=== PATIENT | female | born 1955 | race Caucasian/White ===

== ENCOUNTER 2020-04-25 14:45 | Emergency (ER) | payer MEDICARE, MEDICAID, SELFPAY ==
--- NOTE | ~2020-04-25 | XR_ITS ---
EXAMINATION: XR humerus RT DATE: 04/25/2020 15:15 INDICATION: Diffuse right humeral pain post fall TECHNIQUE: Internal and externally rotated views of the right humerus were obtained. COMPARISON: None. FINDINGS: Alignment is normal. No fracture. 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 Gleno humeral and elbow joint spaces appear normal. Small enthesophytes at the medial and lateral humeral e picondyles. Soft tissues are unremarkable. IMPRESSION: 1. No acute osseous abnormality. Reviewed, dictated and finalized at location A. [facility]
[2020-04-25 15:04] VITALS: BP 153/77; PULSE 93; RESP 16; TEMP 37.2; O2SAT 99
--- NOTE | 2020-04-25 15:56 | ED.UPPEXIN ---
HPI - Extremity Injury (Upper) General Chief Complaint: Extremity Injury, Upper Stated Complaint: Right shoulder and arm pain Source: patient Mode of arrival: ambulatory Limitations: no limitations History of Present Illness HPI narrative: Patient is a 65-year-old female who presents complaining of right shoulder and upper arm pain. Patient reports falling this afternoon at approximately 1230. She reports falling onto grass, unsure how she fell, denies loss of consciousness. Denies other injuries. She denies taking any [id number] medications prior to arrival. complaint: injury to: right and shoulder Related Data Home Medications Medication Instructions Recorded Confirmed alprazolam 04/25/20 atorvastatin 04/25/20 citalopram mg 04/25/20 famotidine 04/25/20 fenofibrate nanocrystallized mg PO 04/25/20 fluticasone propionate INTRANASAL 04/25/20 hydrocodone-acetaminophen 04/25/20 levothyroxine 04/25/20 levothyroxine 04/25/20 metoprolol tartrate 04/25/20 Allergies Allergy/AdvReac Type Severity Reaction Status Date / Time Penicillins Allergy Unknown SWELLING Verified 08/15/16 13:40 OF FACE AND ARMS Mushroom Allergy Unknown Hives / Uncoded 08/15/16 13:40 Red Face Review of Systems Review of Systems: Narrative: CONSTITUTIONAL: Denies fever, chills, or sweats. EYES: Denies visual changes, redness, or discharge. ENT: Denies rhinorrhea, congestion, sore throat, or otalgia. CARDIOVASCULAR: Denies chest pain, palpitations, or edema. RESPIRATORY: Denies cough or dyspnea. GASTROINTESTINAL: Denies abdominal pain, nausea, vomiting, or diarrhea. GENITOURINARY: Denies dysuria or hematuria. SKIN: Denies rash or itching. MUSCULOSKELETAL: Reports right shoulder pain NEUROLOGIC: Denies headache, numbness, dizziness, or weakness. PSYCHIATRIC: Denies anxiety or depression. [facility] Past Medical History Medical History Anxiety HTN (hypertension) Hypercholesterolemia Hypothyroidism Surgical History Surgical History H/O tubal ligation History of appendectomy History of hysterectomy Hx of cholecystectomy Family History Family History Other No significant family history Social History Social History (Updated 04/25/20 @ 15:59 by JUAN Copeland) Smoking status: Current every day smoker Tobacco type: cigarettes Alcohol intake: never Substance use: never Exam Narrative: Exam Narrative: GENERAL: Well-appearing, well-nourished, and in no acute distress. HEAD: Normocephalic, atraumatic. EYES: No redness or drainage. ENT: Mucous membranes pink and moist. CHEST: No respiratory distress. MUSCULOSKELETAL: No bony tenderness. EXTREMITIES: Right arm: Normal range of motion. No edema or ecchymosis. SKIN: Warm, dry, no rash. NEURO: No focal deficits. Alert and oriented x3. Gait steady. PSYCH: Normal affect. No signs of depression or anxiety. Course Vital Signs Vital signs: Vital Signs Temperature 37.2 C 04/25/20 15:04 Pulse Rate 93 04/25/20 15:04 Respiratory Rate 16 04/25/20 15:04 Blood Pressure 153/77 H 04/25/20 15:04 Pulse Oximetry 99 04/25/20 15:04 Temperature 37.2 C 04/25/20 15:04 Pulse Rate 93 04/25/20 15:04 Respiratory Rate 16 04/25/20 15:04 Blood Pressure 153/77 H 04/25/20 15:04 Pulse Oximetry 99 04/25/20 15:04 Reviewed. Patient has been instructed to follow-up with her PCP regarding her blood pressure. MDM - Extremity Injury (Upper) MDM Narrative Medical decision making narrative: X-ray of right shoulder and humerus shows no fracture, dislocation or abnormality. Discussed with patient most likely cause of shoulder pain is musculoskeletal. Discussed taking muscle relaxant as well as ibuprofen. Patient agrees with plan of care. Patient to follow-up with
--- NOTE | 2020-04-25 16:04 | PC.NURSE ---
aware of awaiting dc instructions.
--- NOTE | 2020-04-25 16:14 | PC.NURSE ---
pier worker aware of need for rx to be escribed. pt aware to have pharmacy call with any problems.
== END 2020-04-25 16:06 | disposition home or self-care (01) ==
PROVIDERS: Emergency Provider Nurse Practitioner; PCP Internal Medicine
DX: S46.911A Strain of unspecified muscle, fascia and tendon at shoulder and upper arm level, right arm, initial encounter (principal); W19.XXXA Unspecified fall, initial encounter; I10 Essential (primary) hypertension; E78.00 Pure hypercholesterolemia, unspecified; E03.9 Hypothyroidism, unspecified; F41.9 Anxiety disorder, unspecified
CPT/HCPCS: 73060; 99213; G0463

== ENCOUNTER 2025-05-16 09:45 | Emergency (ER) | payer MEDICARE, MEDICAID, SELFPAY ==
--- NOTE | ~2025-05-16 | XR_ITS ---
EXAMINATION: XR chest 2V DATE: 05/16/2025 10:22 INDICATION: Cough and chest congestion TECHNIQUE: PA and lateral views of the chest were obtained. COMPARISON: None FINDINGS: Mild opacities with bronchial wall thickening in the posterior lung bases on the lateral projection, unclear whether left or right-sided. No pleural effusion or pneumothorax. The cardiomediastinal silhouette is normal. Cholecystectomy clips in the right upper quadrant. Mild thoracic spondylosis. IMPRESSION: 1. Mild opacities with bronchial wall thickening projecting over the posterior sulci on the lateral projection, unclear whether left-sided, right-sided or both, which could represent mild pulmonary edema, aspiration, pneumonia or atelectasis with mild bronchiectasis. Reviewed, dictated and finalized at location A. [facility] IMPRESSION: 1. Mild opacities with bronchial wall thickening projecting over the posterior sulci on the lateral projection, unclear whether left-sided, right-sided or bot h, which could represent mild pulmonary edema, aspiration, pneumonia or atelect asis with mild bronchiectasis.
[2025-05-16 09:57] VITALS: BP 154/76; PULSE 81; RESP 18; TEMP 36.4; O2SAT 97
--- NOTE | 2025-05-16 10:08 | ECG_ITS ---
Test Date: 2025-05-16 10:17:45 Measurements Intervals [place] Rate: 82 P: 58 SD: 165 QRS: 60 QRSD: 76 T: 79 QT: 374 QTc: 437 Interpretive Statements SINUS RHYTHM MINIMAL Q WAVES- INFERIOR LEADS BASELINE ARTIFACT- I, III ,AVL, AVF BORDERLINE ECG No previous ECG available for comparison Electronically Signed On 05-16-2025 10:41:20 [employer] by Esdras Sterling D.O.
--- NOTE | 2025-05-16 10:08 | ED.URI ---
HPI - URI/Sore Throat General Chief Complaint: Upper Respiratory Infection Stated Complaint: Sinus/Congestion Time Seen by Provider: 05/16/25 09:48 Source: patient Mode of arrival: ambulatory Limitations: no limitations History of Present Illness HPI Narrative: Gunjan is a 70-year-old female patient presenting to the clinic today with complaints of sinus pressure, congestion, cough, and chest congestion times 2 weeks and right shoulder pain/neck/chest pain for the past 3 weeks. Has been taking ibuprofen 600 mg for her shoulder without much relief. Is asking if she can increase that to 800 mg. No known injury to her shoulder. States she is having a burning sensation in the front and in the back of the musculature. Denies any shortness of breath. She is a current cigarette smoker. Smokes less than pack of tobacco per day. Related Data Home Medications ?Medication ?Instructions ?Recorded ?Confirmed ?Last Taken ?Type alprazolam 0.5 mg tablet 04/25/20 Unknown History atorvastatin 80 mg tablet 04/25/20 Unknown History citalopram 10 mg tablet mg 04/25/20 Unknown History famotidine 40 mg tablet 04/25/20 Unknown History fenofibrate nanocrystallized 48 mg mg PO 04/25/20 Unknown History tablet fluticasone propionate 50 intranasal 04/25/20 Unknown History mcg/actuation nasal spray,suspension hydrocodone 7.5 mg-acetaminophen 04/25/20 Unknown History 325 mg tablet levothyroxine 125 mcg tablet 04/25/20 Unknown History metoprolol tartrate 50 mg tablet 04/25/20 Unknown History amlodipine 10 mg tablet mg 05/16/25 Unknown History Allergies Allergy/AdvReac Type Severity Reaction Status Date / Time Penicillins Allergy Unknown SWELLING Verified 05/16/25 09:56 OF FACE AND ARMS Mushroom Allergy Unknown Hives / Uncoded 08/15/16 13:40 Red Face Review of Systems Review of Systems: Pertinent positives per HPI. Patient denies any rash, visual changes, dizziness, shortness of breath, chest pain, palpitations, nausea, vomiting, diarrhea, constipation, abdominal pain, or any urinary issues. [facility] Past Medical History Medical History Anxiety HTN (hypertension) Hypercholesterolemia Hypothyroidism Surgical History Surgical History History of hysterectomy H/O tubal ligation Hx of cholecystectomy History of appendectomy Family History Family History Other No significant family history Social History Social History Smoking status: Current every day smoker Tobacco type: cigarettes Alcohol intake: never Substance use: never Comments At the time of my signature, I reviewed and agree with the nursing past medical, surgical, social, and family history. There is no relevant family history pertinent to the patient complaint. Exam Narrative: General: Well-developed, overweight, in no apparent distress Head: Normocephalic, atraumatic Eyes: Pupils equally round and reactive to light bilaterally, EOM intact, sclera and conjunctive clear, no discharge, lids normal Ears: TMs intact and congested, ear canals clear, no drainage, grossly hearing normal. Nose: Nares patent, yellow nasal discharge, moderate inflammation, frontal sinus tenderness. Mouth: Oral pharynx without lesions or masses, good dentition, MMM. Neck: Supple, trachea midline, no enlargement of anterior or posterior cervical nodes, no thyroid masses or goiter palpable. Cardio: Regular rate and rhythm, s1 and s2 normal, no murmur appreciated. Resp: Crackles over the right mid and lower lung zones and to the left lower lung zone, no wheezing or rubs Musculoskeletal: No deformity, tender to palpation over the right trapezius musculature of the cervical spine into the right anterior and posterior shoulder, grossly normal range of motion, muscle strength strong and equal, peripheral pulse strong, no edema of the upper or lower extremity, no cyanosis, normal gait and station Course Course Level of Care: Express Care Visit Vital Signs Vital signs: Vital Signs Temperature 36.4 C L 05/16/25 09:57 Pulse Rate 81 05/16/25 09:57 Respiratory Rate 18 05/16/25 09:57 Blood Pressure 154/76 H 05/16/25 09:57 Pulse Oximetry 97 05/16/25 09:57 Oxygen Delivery Room Air 05/16/25 09:57 Temperature 36.4 C L 05/16/25 09:57 Pulse Rate 81 05/16/25 09:57 Respiratory Rate 18 05/16/25 09:57 Blood Pressure 154/76 H 1223/25 09:57 Pulse Oximetry 97 05/16/25 09:57 Oxygen Delivery Room Air 05/16/25 09:57 [facility] Narrative Medical decision making narrative: At the time of visit patient is resting comfortably on the exam table. Patient appears to be nontoxic. Complaints of sinus pressure, congestion, cough, and chest congestion times 2 weeks and right shoulder pain/neck/chest pain for the past 3 weeks. Has been taking ibuprofen 600 mg for her shoulder without much relief. Is asking if she can increase that to 800 mg. No known injury to her shoulder. States she is having a burning sensation in the front and in the back of the musculature. Denies any shortness of breath. She is a current cigarette smoker. Smokes less than pack of tobacco per day. On exam patient has bilateral TMs intact and congested, no nasal drainage, moderate anterior turbinate inflammation, frontal sinus tenderness, oral pharynx mildly red with postnasal drip, crackles heard over the right lower and mid lung zone as well as over the left lower lung zone, heart rates regular rate and rhythm, no upper or lower extremity edema, tenderness to palpation over the cervical musculature of the right neck/anterior and posterior shoulder. EKG and chest x-ray was ordered. EKG: EKG shows sinus rhythm with a heart rate of 82 beats per minute without ST elevation, depression, or T-wave inversion. Diagnostics: Chest x-ray shows mild opacities with bronchial wall thickening projecting over the posterior sulci on the lateral projection, unclear whether left-sided, right-sided or both, which could represent mild pulmonary edema, aspiration, pneumonia or atelectasis with mild bronchiectasis. Plan: I suspect patient has sinusitis, lower respiratory infection, and trapezius muscle strain. Prescriptions for albuterol inhaler, doxycycline, and prednisone was sent to the pharmacy. Supportive measures were discussed with the patient and they voiced understanding discharge instructions and agrees to treatment plan. Return precautions reviewed Differential Diagnosis Differential Diagnosis: Differential diagnostic considerations for upper respiratory infection include upper respiratory infection, croup, otitis media, sinusitis, viral infection, bronchitis, influenza, pharyngitis, strep, uvulitis pneumonia, shoulder strain, trapezius muscle strain, paresthesia, cervical radiculopathy, mi, coronary artery disease. Imaging Data Radiologist's impression: ITS Impressions Chest X-Ray 05/16/25 10:40 IMPRESSION: 1. Mild opacities with bronchial wall thickening projecting over the posterior sulci on the lateral projection, unclear whether left-sided, right-sided or both, which could represent mild pulmonary edema, aspiration, pneumonia or atelectasis with mild bronchiectasis. ECG Data EKG #1: Attestation: I personally reviewed and interpreted this ECG as follows: ECG completion date: 05/16/25 ECG completion time: 10:17 Prior ECG tracings: not available for review Interpretation: EKG shows normal sinus rhythm with heart rate of 82 beats per minute. No ST elevation, depression, or T-wave inversion noted. DC interval is 165 milliseconds, QRS duration 76 milliseconds, QT-QTC is 374-412 milliseconds, P-R-T axis is 58 60 79 Discharge Plan Discharge Clinical Impression: Acute lower respiratory tract infection, Strain of cervical portion of right trapezius muscle Sinusitis Qualifiers: Sinusitis location: frontal Chronicity: acute Recurrence: non-recurrent Qualified Code(s): J01.10 - Acute frontal sinusitis, unspecified Patient Disposition: Home Condition: Stable Instructions: Antibiotic Form, Muscle Strain (ED), Sinusitis (ED), Pneumonia (ED) Additional Instructions: EKG is reassuring in the clinic today. Chest x-ray shows mild opacities with bronchial wall thickening projecting over the posterior sulci on the lateral projection which could represent mild pulmonary edema, aspiration, pneumonia, or atelectasis with mild bronchialectasis Take prescription medications only as prescribed-prednisone, albuterol inhaler, and doxycycline Increase fluids and stay well hydrated May take Tylenol or motrin as directed on bottle for pain/fever May use Flonase 1 spray in each nare daily May take OTC antihistamines such as Zyrtec or Claritin daily as directed on bottle May apply Vicks vapor rub to chest to open sinuses Sinus rinses for congestion Cepacol spray, cough drops, throat lozenges, warm tea with honey/lemon, gargle salt water to soothe throat BRAT diet for diarrhea Clear liquids x 24 hours then advance as tolerated for nausea/vomiting Go to the ED if you develop a worsening in your condition- high fever not controlled by Tylenol or Motrin, dehydration, weakness, lethargy, shortness of breath, or chest pain. Follow up with your PCP in 3-5 days if symptoms persist. Patient Language: Singaporean Prescriptions: New doxycycline monohydrate 100 mg tablet 100 mg PO BID 7 Days Qty: 14 0RF prednisone 20 mg tablet 40 mg PO DAILY 5 Days Qty: 10 0RF albuterol sulfate 90 mcg/actuation HFA aerosol inhaler 2 puff inhalation Q4-6H PRN (Reason: shortness of breath or wheezing) 30 Days Qty: 8.5 0RF No Action atorvastatin 80 mg tablet citalopram 10 mg tablet famotidine 40 mg tablet alprazolam 0.5 mg tablet hydrocodone-acetaminophen 7.5-325 mg tablet levothyroxine 125 mcg tablet metoprolol tartrate 50 mg tablet fluticasone propionate 50 mcg/actuation spray,suspension INTRANASAL fenofibrate nanocrystallized 48 mg tablet PO cyclobenzaprine 10 mg tablet 10 mg PO HS PRN (Reason: muscle spasm) Qty: 10 0RF ibuprofen 800 mg tablet 800 mg PO TID PRN (Reason: pain) Qty: 20 0RF amlodipine 10 mg tablet Follow-up/Referrals: ,Jose Fuentes MD [Primary Care Provider] Time of Disposition: 10:50 Quality NIHSS Nursing Documentation ED NIHSS nursing documentation: reviewed/agree
== END 2025-05-16 11:00 | disposition home or self-care (01) ==
PROVIDERS: Emergency Provider Nurse Practitioner Family; PCP Internal Medicine
DX: J22 Unspecified acute lower respiratory infection (principal); S16.1XXA Strain of muscle, fascia and tendon at neck level, initial encounter; X58.XXXA Exposure to other specified factors, initial encounter; J01.10 Acute frontal sinusitis, unspecified; F17.210 Nicotine dependence, cigarettes, uncomplicated; I10 Essential (primary) hypertension; E78.00 Pure hypercholesterolemia, unspecified; E03.9 Hypothyroidism, unspecified; F41.9 Anxiety disorder, unspecified
CPT/HCPCS: 71046; 93005; 99213; G0463